=== PATIENT | female | born 1970 | race Caucasian/White ===

== ENCOUNTER → 2022-04-27 | Outpatient (CLI) | payer OTHER ==
--- NOTE | 2022-04-27 15:01 | US ---
EXAMINATION TYPE: US neck DATE OF EXAM: 04/27/2022 COMPARISON: NONE CLINICAL HISTORY: M54.2 cervicalgia. Tension pain at base of skull leading to shoulders, posterior ne ck. Patient denies pain on the front or lateral neck. In the area of pain, posterior neck, midline from the base of the skull to the shoulder junctions, no abnormalities in particular solid or cystic masses or fluid collections were visualized in the soft tissue. Normal subcutaneous fatty and deeper muscular tissue is identified. IMPRESSION: As above.
== END | disposition home or self-care (01) ==
LOC: RADUSWWP 14:36
PROVIDERS: ATTEND Family Medicine
DX: M54.2 Cervicalgia (principal)
CPT/HCPCS: 76536

== ENCOUNTER → 2022-06-03 | Outpatient (CLI) | payer OTHER ==
--- NOTE | 2022-06-06 08:04 | BMR ---
EXAMINATION TYPE: MR breast BILAT wo con DATE OF EXAM: 06/03/2022 COMPARISON: None. HISTORY: Complication of implant, left side. TECHNIQUE: A series of fat and water weighted images in the long and short axis views of both breasts are obtained. Three-dimensional and additional postprocessing imaging is created on independent wo rkstation and reviewed during official interpretation of this study. FINDINGS: Scattered fibroglandular tissue is present bilaterally. No suspicious axillary adenopathy i s seen. There are symmetric subpectoral silicone implants with some prominent radial folds bilaterall y. No suspicious infoldings or linguini sign to suggest intracapsular rupture bilaterally. No free si licone to suggest extracapsular rupture. No abnormal skin thickening is seen bilaterally. Chest wall is intact. Small size hiatal hernia is incidentally noted. Trace right pleural effusion incidentally noted. IMPRESSION: No MRI evidence for intracapsular or extracapsular implant rupture.
== END | disposition home or self-care (01) ==
LOC: RADMRIMAIN 14:49
PROVIDERS: ATTEND Family Medicine
DX: T85.9XXA Unspecified complication of internal prosthetic device, implant and graft, initial encounter (principal)
CPT/HCPCS: 77047

== ENCOUNTER → 2022-09-02 | Outpatient (CLI) | payer OTHER ==
--- NOTE | 2022-09-02 15:37 | US ---
EXAMINATION TYPE: US thyroid st tissue head/neck DATE OF EXAM: 09/02/2022 COMPARISON: NONE CLINICAL HISTORY: R22.1 LOCALIZED SWELLING, MASS AND LUMP, NECK. GLAND SIZE: Right Lobe: 4.7 x 1.7 x 1.3 cm Overall Parenchyma: homogenous Left Lobe: 5.6 x 1.4 x 1.5 cm Overall Parenchyma: homogeneous Isthmus Thickness: 0.5 cm NODULES RIGHT: # of nodules measured on right: 0 LEFT: # of nodules measured on left: 0 ISTHMUS: # of nodules measured in the isthmus: 0 Bilateral neck scanned, there are two normal appearing lymph nodes noted left lateral neck. No other abnormality noted. IMPRESSION: The left lobe of the thyroid is enlarged. No solid or cystic nodule seen. 2017 ACR TI-RADS LEVEL: *Highest TI-RADS level nodule reported
== END | disposition home or self-care (01) ==
LOC: RADUSWWP 15:09
PROVIDERS: ATTEND Family Medicine
DX: R22.1 Localized swelling, mass and lump, neck (principal)
CPT/HCPCS: 76536

== ENCOUNTER → 2023-11-06 | Outpatient (CLI) | payer OTHER ==
--- NOTE | 2023-11-06 14:30 | CTL ---
EXAMINATION TYPE: CT Low Dose Lung DATE OF EXAM ORDERED: 11/06/2023 HISTORY: Mercedes canas. Lung cancer screening CT DLP: 87 mGycm Automated exposure control for dose reduction was used. SCREENING VISIT: Initial COMPARISON: None TECHNIQUE: Low dose computed tomography scan was performed through the chest at 1 mm thick sections a nd reconstructed images in the coronal plane at [address] DIAGNOSTIC QUALITY: Limited, but interpretable FINDINGS: LUNG NODULES: Present, detailed below: 1. There is a 0.5 cm pleural-based density posterior left upper lung field. Series 4 image 34. 2. 0.5 cm pleural-based density lateral right upper lung field. Series 4 image 44. 3. Small punctate peripheral nodules are in the right midlung, example image series 4 image 130. LUNGS: COPD: Severity: None Fibrosis: Severity: None Lymph nodes: None Other findings: None RIGHT PLEURAL SPACE: Effusion: None Calcification: None Thickening: None Pneumothorax: None LEFT PLEURAL SPACE: Effusion: None Calcification: None Thickening: None Pneumothorax: None HEART: Heart Size: Normal Coronary calcification: None Pericardial effusion: None OTHER FINDINGS: Upper abdomen: Normal Bony thorax: Normal Supraclavicular region: Normal Other: Ascending thoracic aorta at the level of the main pulmonary artery is 3.4 cm. Main pulmonary a rtery the bifurcation is 2.8 cm. IMPRESSION: 1. No suspicious findings suggest primary or metastatic neoplasm. 2. There are some nonspecific small densities in the peripheries. Short-term follow-up in 6 months is recommended. FOLLOW UP CT CHEST RECOMMENDATION: Follow-up noncontrast CT chest [address] LUNG RAD: Lung-Rad 3 Probably Benign
== END | disposition home or self-care (01) ==
LOC: RADCTMAIN 12:40
PROVIDERS: ATTEND Family Medicine
DX: Z12.2 Encounter for screening for malignant neoplasm of respiratory organs (principal); J98.4 Other disorders of lung; T85.9XXA Unspecified complication of internal prosthetic device, implant and graft, initial encounter; F17.210 Nicotine dependence, cigarettes, uncomplicated
CPT/HCPCS: 71271; 77047

== ENCOUNTER → 2024-06-05 | Outpatient (CLI) | payer OTHER ==
--- NOTE | 2024-06-08 20:16 | US ---
EXAMINATION TYPE: US thyroid st tissue head/neck DATE OF EXAM: 06/05/2024 COMPARISON: NONE CLINICAL INDICATION: Female, 53 years old with history of K04.7 PERIAPICAL ABSCESS WITHOUT SINUS; Pt had dental abscess and has been on antibiotics for about a week now. Area has gotten smaller since be ing on antibiotics. TECHNIQUE: Grayscale and color Doppler imaging of the parotid gland. FINDINGS: 2 lymph nodes seen in area of concern. Largest is measuring 0.8 x 0.5 x 0.4cm IMPRESSION: Subcentimeter lymph nodes noted as discussed. [facility], , 06/08/2024 8:13 PM
== END | disposition home or self-care (01) ==
LOC: RADUSWWP 15:39
PROVIDERS: ATTEND Family Medicine
DX: K04.7 Periapical abscess without sinus (principal); R59.0 Localized enlarged lymph nodes
CPT/HCPCS: 76536